=== PATIENT | male | born 1970 | race Caucasian/White ===

== ENCOUNTER 2017-11-11 12:21 | Emergency (ER) | payer OTHER ==
[2017-11-11] MEDS ORDERED: METO-253 PO (12:32)
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
[2017-11-11 14:11] VITALS: BP 124/81
[2017-11-11] MEDS ORDERED: OXYC-865 PO (14:11)
== END 2017-11-11 14:16 | disposition home or self-care (01) ==
LOC: ER 12:31
DX: S22.32XA Fracture of one rib, left side, initial encounter for closed fracture (principal); V18.0XXA Pedal cycle driver injured in noncollision transport accident in nontraffic accident, initial encounter; Y93.55 Activity, bike riding
CPT/HCPCS: 71046; 71100; 73564; 99283